=== PATIENT | female | born 1960 | race Caucasian/White ===

== ENCOUNTER 2017-02-25 13:58 | Emergency (ER) | payer MEDICARE ==
[2017-02-25 17:11] LABS: HEMOGLOBIN 12.1 gm/dl (12.3-15.3); RED BLOOD COUNT 3.94 M/UL (4.00-5.10); WHITE BLOOD COUNT 7.8 K/UL (4.5-11.0)
[2017-02-25 17:14] LABS: BUN/CREATININE RATIO 25 (0-10)
== END 2017-02-25 18:00 | disposition left against medical advice (07) ==
LOC: ER1 13:58
PROVIDERS: Emergency Medicine
DX: R42 Dizziness and giddiness (principal); R07.9 Chest pain, unspecified; R31.9 Hematuria, unspecified; R11.10 Vomiting, unspecified; R51 Headache; H53.8 Other visual disturbances; E11.9 Type 2 diabetes mellitus without complications; I10 Essential (primary) hypertension; E78.5 Hyperlipidemia, unspecified; Z90.49 Acquired absence of other specified parts of digestive tract; F17.200 Nicotine dependence, unspecified, uncomplicated; Z79.899 Other long term (current) drug therapy
CPT/HCPCS: 36415; 70450; 71010; 80053; 81001; 82550; 82553; 83874; 84484; 85025; 93005; 99285

== ENCOUNTER 2021-03-13 13:33 | Inpatient (IN) | payer MEDICARE, MEDICAID ==
[~2021-03-13] VITALS: Ht 160 cm; Wt 55.3 kg
[~2021-03-13 13:33] MED LIST: BENICAR20 MG PO; CLARITIN10 MG PO; DILANTIN100 MG PO; KLONOPIN1 MG PO; LEXAPRO20 MG PO; LOSARTAN-HCTZ1 EACH PO; NEURONTIN400 MG PO; PAMELOR10 MG PO; PLAVIX 75 MG TA75 MG PO; PREDNISONE20 MG PO; PREMARIN0.625 MG PO; PROVENTIL HFA6.7 GM INH; SINGULAIR10 MG PO; SUBOXONE 8 MG-1 EACH SL; THEO-DUR 200 M200 MG PO; VENTOLIN HFA 66.7 GM INH; ZANTAC150 MG PO
[2021-03-13 14:55] LABS: HEMOGLOBIN 11.2 gm/dl (12.3-15.3); RED BLOOD COUNT 3.68 M/UL (4.00-5.10); WHITE BLOOD COUNT 6.8 K/UL (4.5-11.0)
[2021-03-13 15:16] LABS: BUN/CREATININE RATIO 20 (0-10)
[2021-03-13] MEDS ORDERED: GABAPENTIN800 MG PO (18:22)
[2021-03-13] MEDS ORDERED: SUBOXONE 8 MG-1 EACH SL (18:24)
[2021-03-13] MEDS ORDERED: AMLODIPINE BESYL5 MG PO (18:26)
[2021-03-13] MEDS ORDERED: BENAZEPRIL HCL20 MG PO (18:27)
[2021-03-13] MEDS ORDERED: IBUPROFEN600 MG PO (18:28)
[2021-03-13] MEDS ORDERED: ISOSORBIDE MONO30 MG PO (18:28)
[2021-03-13] MEDS ORDERED: LOSARTAN-HCTZ1 EAC1 PO (18:29)
[2021-03-13] MEDS ORDERED: MONTELUKAST SOD10 MG PO (18:29)
[2021-03-13] MEDS ORDERED: ROPINIROLE HCL1 MG PO (18:30)
[2021-03-13] MEDS ORDERED: CLARITIN 10MG T10 MG PO (18:31)
[2021-03-13] MEDS ORDERED: ASPIRIN EC81 MG PO (18:31)
[2021-03-13] MEDS ORDERED: HAIR SKIN NAIL1 EACH PO (18:32)
[2021-03-13] MEDS ORDERED: KLONOPIN0.5 MG PO (18:32)
[2021-03-13] MEDS ORDERED: PROTONIX40 MG PO (18:33)
[2021-03-13] MEDS ORDERED: PLAVIX 75 MG TA75 MG PO (18:33)
[2021-03-13] MEDS ORDERED: PREMARIN 0.60.625 MG PO (18:33)
[2021-03-13] MEDS ORDERED: PRAVASTATIN SOD40 MG PO (18:34)
[2021-03-13] MEDS ORDERED: THEO-24200 MG PO (18:34)
[2021-03-13] MEDS ORDERED: HYDROXYZINE HCL25 MG PO (18:35)
[2021-03-13] MEDS ORDERED: MAVYRET PO (18:37)
[2021-03-13] MEDS ORDERED: PHENYTOIN SODI100 MG PO (18:47)
[2021-03-14 03:37] LABS: HEMOGLOBIN 11.5 gm/dl (12.3-15.3); RED BLOOD COUNT 3.78 M/UL (4.00-5.10); WHITE BLOOD COUNT 5.2 K/UL (4.5-11.0)
[2021-03-14 03:57] LABS: BUN/CREATININE RATIO 19 (0-10)
[2021-03-15 06:42] LABS: HEMOGLOBIN 12.3 gm/dl (12.3-15.3); RED BLOOD COUNT 4.01 M/UL (4.00-5.10)
[2021-03-15 06:50] LABS: WHITE BLOOD COUNT 8.4 K/UL (4.5-11.0)
[2021-03-15 07:08] LABS: BUN/CREATININE RATIO 24 (0-10)
[2021-03-16 02:29] LABS: HEMOGLOBIN 11.8 gm/dl (12.3-15.3); RED BLOOD COUNT 3.86 M/UL (4.00-5.10); WHITE BLOOD COUNT 9.1 K/UL (4.5-11.0)
[2021-03-16 02:50] LABS: BUN/CREATININE RATIO 19 (0-10)
--- NOTE | 2021-03-16 09:13 | NUR ---
PATIENT EDUCATED ON THE NEED TO STAY ON PCU AND NOT TO GO OUTSIDE TO SMOKE. PATIENT VOICES UNDERSTANDING AND STATES SHE WILL STAY ON THE UNIT.
[2021-03-16 12:10] LABS: C-PEPTIDE, SERUM 1.9 ng/mL (1.1-4.4); INSULIN 2.3 uIU/mL (2.6-24.9)
--- NOTE | 2021-03-16 12:54 | NUR ---
PATIENT WANTED TO LEAVE AMA. PATIENT EDUCATED AGAINST LEAVING AMA. PATIENT VERBALIZED UNDERSTANDING AND LEFT AMA.
[2021-03-17 19:11] LABS: BETA-HYDROXYBUTYRATE 0.8 mg/dL (.)
[2021-03-24 18:11] LABS: ACETOHEXAMIDE Negative ug/mL (20-60); CHLORPROPAMIDE Negative ug/mL (75-250); GLIMEPIRIDE Negative ng/mL (80-250); GLIPIZIDE Negative ng/mL (200-1000); GLYBURIDE Negative ng/mL (UP TO 1500); NATEGLINIDE Negative ng/mL (UP TO 10000); REPAGLINIDE Negative ng/mL (UP TO 200); TOLAZAMIDE Negative ug/mL (UP TO 80); TOLBUTAMIDE Negative ug/mL (40-100)
== END 2021-03-16 12:55 | disposition left against medical advice (07) | DRG 641 ==
LOC: ER1 13:33 → CDU 17:05 → PROG CARE 17:05 → CDU 17:05 → CCU 03-14 00:18 → PROG CARE 03-15 17:00
PROVIDERS: Family Medicine; Physician Assistant Medical; ADMIT Internal Medicine
PROC: B24BZZ4 Ultrasonography of Heart with Aorta, Transesophageal (ICD-10-PCS; principal; 2021-03-15)
DX: E16.2 Hypoglycemia, unspecified (principal); E87.1 Hypo-osmolality and hyponatremia; I25.10 Atherosclerotic heart disease of native coronary artery without angina pectoris; J45.909 Unspecified asthma, uncomplicated; I10 Essential (primary) hypertension; E78.5 Hyperlipidemia, unspecified; Z20.822 Contact with and (suspected) exposure to COVID-19; B19.20 Unspecified viral hepatitis C without hepatic coma; F32.9 Major depressive disorder, single episode, unspecified; F41.9 Anxiety disorder, unspecified; G40.909 Epilepsy, unspecified, not intractable, without status epilepticus; F11.10 Opioid abuse, uncomplicated; F17.210 Nicotine dependence, cigarettes, uncomplicated; R00.1 Bradycardia, unspecified; I25.2 Old myocardial infarction; Z95.5 Presence of coronary angioplasty implant and graft; Z90.49 Acquired absence of other specified parts of digestive tract; Z90.710 Acquired absence of both cervix and uterus; Z91.040 Latex allergy status; Z82.49 Family history of ischemic heart disease and other diseases of the circulatory system; Z83.3 Family history of diabetes mellitus; Z80.1 Family history of malignant neoplasm of trachea, bronchus and lung
CPT/HCPCS: ECHO; 36415; 70450; 71045; 80048; 80053; 80185; 80307; 81001; 82010; 82550; 82553; 82962; 83690; 83735; 83874; 84206; 84295; 84439; 84443; 84484; 84681; 85025; 85027; 93005; 93306; 94640; 94664; 94760; 99285; G0378; G0481; J1650; J7060; J7070; U0002